=== PATIENT | female | born 1995 | race Caucasian/White ===

== ENCOUNTER 2016-09-11 19:50 | Emergency (ER) | payer OTHER ==
[~2016-09-11] VITALS: Ht 157.5 cm; Wt 67.4 kg
[2016-09-11] MEDS ORDERED: ZOFRAN ODT4 MG PO (21:25)
[2016-09-11] MEDS ORDERED: NAPROSYN500 MG PO (21:25)
[2016-09-11 21:41] VITALS: BP 121/72
== END 2016-09-11 21:41 | disposition home or self-care (01) ==
LOC: EME 19:50
DX: S06.0X9A Concussion with loss of consciousness of unspecified duration, initial encounter (principal); W01.190A Fall on same level from slipping, tripping and stumbling with subsequent striking against furniture, initial encounter; Y93.89 Activity, other specified
CPT/HCPCS: 99281; 99283

== ENCOUNTER 2016-09-15 13:32 | Emergency (ER) | payer OTHER ==
[~2016-09-15] VITALS: Ht 157.5 cm; Wt 65.4 kg
[~2016-09-15 13:32] MED LIST: NAPROSYN500 MG PO; ZOFRAN ODT4 MG PO
[2016-09-15] MEDS ORDERED: ULTRAM50 MG PO (15:58)
[2016-09-15] MEDS ORDERED: REGLAN5 MG PO (15:58)
[2016-09-15] MEDS ORDERED: FLEXERIL10 MG PO (15:58)
[2016-09-15 16:43] VITALS: BP 111/71
== END 2016-09-15 16:44 | disposition home or self-care (01) ==
LOC: EME 13:32
DX: S06.0X1A Concussion with loss of consciousness of 30 minutes or less, initial encounter (principal); R51 Headache; R11.0 Nausea; W01.198A Fall on same level from slipping, tripping and stumbling with subsequent striking against other object, initial encounter
CPT/HCPCS: 70450; 72125; 99281; 99284; J1885